=== PATIENT | male | born 1965 | race Caucasian/White ===

== ENCOUNTER 2017-01-18 12:17 | Emergency (ER) | payer BC ==
[2017-01-18 12:24] VITALS: BP 118/79
--- NOTE | 2017-01-18 12:25 | ED Physician Documentation ---
PD HPI UPPER EXT INJURY - Stated complaint Stated Complaint: R ARM INJ - Chief complaint Chief Complaint: Ext Problem - History obtained from History obtained from: Patient - History of Present Illness Location: Right, Wrist Type of injury: Fall (he was loosening bolt and the wrench slipped or such and he fell backward off about 4-5 foot height, onto right wrist trying to catch his fall.) Timing - onset: Today Timing - duration: Hours Timing - details: Abrupt onset, Still present Improved by: Rest Worsened by: Moving, Palpating Associated symptoms: Swelling. No: Weakness, Numbness, Tingling Contributing factors: No: Prior ortho surgery Similar symptoms before: Has not had sx before Recently seen: Not recently seen Review of Systems Cardiac: denies: Chest pain / pressure GI: denies: Abdominal Pain Neurologic: denies: Focal weakness, Numbness, Headache, Head injury PD PAST MEDICAL HISTORY - Past Medical History Musculoskeletal: None - Allergies Allergies/Adverse Reactions: Allergies Allergy/AdvReac Type Severity Reaction Status Date / Time amoxicillin Allergy Anaphylaxis Verified 01/18/17 12:25 PD ED PE NORMAL - Vitals Vital signs reviewed: Yes - General General: Alert and oriented X 3, No acute distress, Well developed/nourished - HEENT HEENT: Atraumatic - Neck Neck: Supple, no meningeal sign, No bony TTP, No adenopathy - Respiratory Respiratory: Clear bilaterally, Other (no chestwall tenderness) - Abdomen Abdomen: Soft, Non tender - Extremities Extremities: Other (right wrist with swelling and tenderness dorsal radial aspect. Limited ROM due to pain. Normal sensation, color, cap refill in fingers. ) - Neuro Neuro: Alert and oriented X 3, No motor deficit, No sensory deficit, Normal speech Results - Vitals Vitals: Vital Signs - 24 hr 01/18/17 12:22 Temperature 36.8 C Heart Rate 82 Respiratory 18 Rate Blood Pressure 118/79 O2 Saturation 98 Oxygen O2 Source Room air Procedures - Splint (location) right wrist Splint applied by: Tech Type of splint: Fiberglass, Sugar tong Other: Patient tolerated well, No complications, Neurovascular intact, Good alignment, Sling provided PD MEDICAL DECISION MAKING - ED course Complexity details: reviewed results, considered differential, d/w patient Departure - Departure Disposition: 01 Home, Self Care Clinical Impression: Fall from height of greater than 3 feet Wrist fracture, closed Qualifiers: Encounter type: initial encounter Laterality: right Qualified Code(s): S62.101A - Fracture of unspecified carpal bone, right wrist, initial encounter for closed fracture Condition: Stable Record reviewed to determine appropriate education?: Yes Instructions: ED Fx Upper Ext Follow-Up: Damien Whiting MD [Provider Admit Priv/Credential] - Comments: Keep the splint on and keep it clean and dry. Sling as needed for elevation of the arm. Ice and rest the wrist often the next few days to reduce swelling. Tylenol if needed for pain. Ibuprofen or naproxen 2-3 times a day for the next 5 or 6 days for inflammation and pain. Follow-up with orthopedics in the next 4 -5 days for recheck and change to a cast. You will presumably need this on for about a month. Discharge Date/Time: 01/18/17 13:45
[2017-01-18] MEDS ORDERED: ACETAMINOPHEN 325 MG TABLET PO STA (12:32)
[2017-01-18] MEDS ORDERED: IBUPROFEN 600 MG TABLET PO STA (12:32)
[2017-01-18] MEDS ORDERED: ACETAMINOPHEN 325 MG TABLET PO ONE (12:40)
[2017-01-18] MEDS ORDERED: IBUPROFEN 600 MG TABLET PO ONE (12:40)
--- NOTE | 2017-01-18 16:42 | XRAY Report ---
EXAM: RIGHT WRIST RADIOGRAPHY EXAM DATE: 01/18/2017 04:08 PM. CLINICAL HISTORY: Trauma. Fall today, mid wrist pain and swelling COMPARISON: None. TECHNIQUE: 4 views. FINDINGS: Bones: Dorsal bone fragment seen dorsal to the midcarpal joints, seen on the lateral view, measures 5 mm. This could be an acute or chronic dorsally displaced fracture fragment. Dorsal wrist soft tissue swelling. Linear lucency seen at the distal radius, radial aspect near the styloid, could represent a nondispla sammi acute radial styloid fracture, could be a partial fracture, versus artifact. There appears to be adjacent soft tissue swelling. Small chronic appearing bone fragment seen distal to the radial styloi d. Joints: No subluxations. IMPRESSION: Dorsal bone fragment seen dorsal to the midcarpal joints, seen on the lateral view, measu res 5 mm. This could be an acute or chronic dorsally displaced fracture fragment. Dorsal wrist soft t issue swelling. Linear lucency seen at the distal radius, radial aspect near the styloid, could represent a nondispla sammi acute radial styloid fracture, could be a partial fracture, versus artifact. There appears to be adjacent soft tissue swelling. [facility] Referring Provider Line: [phone] SITE ID: [id number]
== END 2017-01-18 13:45 | disposition home or self-care (01) ==
LOC: ED 12:17
DX: S63.101A Unspecified subluxation of right thumb, initial encounter (principal); W17.89XA Other fall from one level to another, initial encounter; Y93.89 Activity, other specified
CPT/HCPCS: 29125; 99282; 99283